=== PATIENT | male | born 1980 | race Two or more races ===

== ENCOUNTER 2019-01-04 15:45 | Inpatient (IN) | payer OTHER ==
[~2019-01-04] VITALS: Ht 177.8 cm; Wt 76.5 kg
[~2019-01-04 15:45] MED LIST: CODACE30 PO; HYDACE5 PO; IBUP800 PO; KETO10 PO; LEVSOD125 PO; METCAR500 PO; NAPR500 PO; NAPR550 PO; OXYACE5T PO; RXNAPNA550 PO; RXOXYACE PO; RXTRAM50 PO; TRAM50 PO; TRAZ50 PO
[2019-01-04 16:29] LABS: BASOPHILS ABSOLUTE AUTO 0.03 K/mm3 (0.00-0.23); BASOPHILS PERCENT AUTO 0 % (0-2); EOSINOPHILS PERCENT AUTO 0 % (0-6); Hematocrit 41.7 % (37.0-53.0); Hemoglobin 14.3 g/dL (13.5-17.5); IMMATURE GRAN ABSOLUTE AUTO 0.14 K/mm3 (0.00-0.10); IMMATURE GRAN PERCENT AUTO 1 % (0-1); LYMPHOCYTES ABSOLUTE AUTO 1.13 K/mm3 (0.84-5.20); LYMPHOCYTES PERCENT AUTO 6 % (21-46); MONOCYTES ABSOLUTE AUTO 1.68 K/mm3 (0.16-1.47); MONOCYTES PERCENT AUTO 9 % (4-13); Mean Corpuscular HGB 30.6 pg (26.0-34.0); Mean Corpuscular HGB Conc 34.3 g/dL (31.5-36.5); Mean Corpuscular Volume 89 fL (80-100); NEUTROPHILS PERCENT AUTO 85 % (41-73); Platelet Count 186 K/mm3 (150-400); RDW Coefficient Variation 13.4 % (11.7-14.2); RDW Standard Deviation 43.8 fL (35.1-46.3); Red Blood Cell Count 4.68 M/mm3 (4.30-5.90); White Blood Cell Count 19.58 K/mm3 (4.00-11.30)
[2019-01-04 16:44] LABS: International Normalized Ratio 1.14; Prothrombin Time Results 11.9 Sec (9.7-11.5)
[2019-01-04 16:52] LABS: Alanine Aminotransfer (ALT/SGP 34 U/L (12-78); Alk Phos 70 U/L (50-136); Anion Gap 7 mmol/L (6-16); Aspartate Aminotrans (AST/SGOT 34 U/L (12-37); Bilirubin, Total 0.7 mg/dL (0.1-1.0); Blood Urea Nitrogen 7 mg/dL (8-24); Bun/Creatinine Ratio 7.7 (12.0-20.0); CO2, Blood 23 mmol/L (21-32); Calcium, Blood 7.8 mg/dL (8.5-10.1); Chloride, Blood 101 mmol/L (98-108); Creatinine, Blood 0.91 mg/dL (0.60-1.20); Globulin, Blood 3.1 g/dL (2.2-4.0); Glomerular Filtration Rate >60 (60-); Glucose, Blood 107 mg/dL (70-99); Potassium, Blood 3.8 mmol/L (3.5-5.5); Sodium, Blood 131 mmol/L (136-145); Total Protein, Blood 6.1 g/dL (6.4-8.2)
[2019-01-04] MEDS ORDERED: SERT25 PO (17:31)
[2019-01-04] MEDS ORDERED: BACL10 (17:31)
[2019-01-04 18:00] LABS: Source, Urine Catheter
[2019-01-04 18:06] LABS: Bilirubin, Urine Neg (Neg); Blood, Urine Neg (Neg); Glucose Qualitative, Urine Neg (Neg); Ketones, Urine 2+ (Neg); Leukocyte Esterase, Urine Neg (Neg); Nitrite, Urine Neg (Neg); Protein, Urine 1+ (Neg); Urobilinogen, Urine NORM (Normal)
[2019-01-04 18:15] LABS: Appearance, Urine Clear (Clear); Color, Urine Yellow (P-Yellow)
[2019-01-05 05:18] LABS: BASOPHILS ABSOLUTE AUTO 0.04 K/mm3 (0.00-0.23); BASOPHILS PERCENT AUTO 0 % (0-2); EOSINOPHILS ABSOLUTE AUTO 0.04 K/mm3 (0.00-0.68); EOSINOPHILS PERCENT AUTO 0 % (0-6); Hematocrit 37.5 % (37.0-53.0); Hemoglobin 12.6 g/dL (13.5-17.5); IMMATURE GRAN ABSOLUTE AUTO 0.18 K/mm3 (0.00-0.10); IMMATURE GRAN PERCENT AUTO 1 % (0-1); LYMPHOCYTES ABSOLUTE AUTO 1.29 K/mm3 (0.84-5.20); LYMPHOCYTES PERCENT AUTO 6 % (21-46); MONOCYTES ABSOLUTE AUTO 1.83 K/mm3 (0.16-1.47); MONOCYTES PERCENT AUTO 9 % (4-13); Mean Corpuscular HGB 30.8 pg (26.0-34.0); Mean Corpuscular HGB Conc 33.6 g/dL (31.5-36.5); Mean Platelet Volume 11.8 fL (9.1-12.4); NEUTROPHILS PERCENT AUTO 84 % (41-73); Platelet Count 157 K/mm3 (150-400); RDW Coefficient Variation 13.4 % (11.7-14.2); RDW Standard Deviation 45.5 fL (35.1-46.3); Red Blood Cell Count 4.09 M/mm3 (4.30-5.90); White Blood Cell Count 20.78 K/mm3 (4.00-11.30)
[2019-01-05 05:21] LABS: Mean Corpuscular Volume 92 fL (80-100)
[2019-01-05 05:42] LABS: Alanine Aminotransfer (ALT/SGP 40 U/L (12-78); Albumin, Blood 2.4 g/dL (3.4-5.0); Alk Phos 61 U/L (50-136); Anion Gap 7 mmol/L (6-16); Aspartate Aminotrans (AST/SGOT 65 U/L (12-37); Bilirubin, Total 0.9 mg/dL (0.1-1.0); Blood Urea Nitrogen 10 mg/dL (8-24); Bun/Creatinine Ratio 12.8 (12.0-20.0); CO2, Blood 23 mmol/L (21-32); Calcium, Blood 7.8 mg/dL (8.5-10.1); Chloride, Blood 105 mmol/L (98-108); Creatinine, Blood 0.78 mg/dL (0.60-1.20); Globulin, Blood 2.4 g/dL (2.2-4.0); Glomerular Filtration Rate >60 (60-); Glucose, Blood 96 mg/dL (70-99); Potassium, Blood 3.8 mmol/L (3.5-5.5); Sodium, Blood 135 mmol/L (136-145); Total Protein, Blood 4.8 g/dL (6.4-8.2)
--- NOTE | 2019-01-05 06:08 | NUR ---
SHIFT SUMMARY PT ADMITTED WITH SEPSIS SECONDARY TO CELLULITIS LEFT ARM. ALERT AND ORIENTED. ORIENTED TO CALL LIGHT AND ROOM. PT C/O PAIN ON LEFT SIDE GIVEN IV TORADOL X 2 DURING SHIFT AND IV DILAUDID X1. PT ALSO HAD LARGE EMESIS AND MEDICATED WITH ZOFRAN. PT NPO AFTER MIDNIGHT FOR A PROCEDURE THIS AM. IVF'S INFUSING WITHOUT DIFFICULTY. USES URINAL AT BEDSIDE. WILL CONTINUE TO MONITOR.
--- NOTE | 2019-01-05 22:47 | NUR ---
2149 PATIENT STATED THAT HE WAS CURIOUS IF HE WAS SUPPOSED TO HAVE HIS ANTICLOTTING MEDICATION. SPOKE TO FINANCIAL DATA ANALYST AND LET HER KNOWN THAT PATIENT LOVENOX WAS HELD R/T POSSIBLE SX THIS DAY; UPON REVIEWING PHYSICIAN DOCUMENTATION. FINANCIAL DATA ANALYST STATED THAT IT WOULD BE OKAY AT THIS TIME TO GIVE LOVENOX.
--- NOTE | 2019-01-05 22:49 | NUR ---
PHYSICIAN CORRESPONDENCE [id number] RELAYED TO PHYSICIAN THAT WHEN RESPIRATORY THERAPY GAVE BREATHING TX TO PATIENT IT WAS NOTED THAT HIS TONGUE WAS SORE WITH REDNESS AND WHITE PATCHES. UPON OWN ASSESSMENT IT WAS NOTED THAT IT WAS INDEED RED, BUT NO REAL COMPLAINTS OF IT BEING SORE. PHYSICIAN STATED TO HAVE ATTENDING ADDRESS IN THE AM IT IS NOT AN EMERGENT ISSUE.
[2019-01-06 05:15] LABS: BASOPHILS ABSOLUTE AUTO 0.02 K/mm3 (0.00-0.23); BASOPHILS PERCENT AUTO 0 % (0-2); EOSINOPHILS ABSOLUTE AUTO 0.18 K/mm3 (0.00-0.68); EOSINOPHILS PERCENT AUTO 1 % (0-6); Hematocrit 38.7 % (37.0-53.0); Hemoglobin 12.9 g/dL (13.5-17.5); IMMATURE GRAN ABSOLUTE AUTO 0.09 K/mm3 (0.00-0.10); IMMATURE GRAN PERCENT AUTO 1 % (0-1); LYMPHOCYTES PERCENT AUTO 8 % (21-46); MONOCYTES ABSOLUTE AUTO 1.03 K/mm3 (0.16-1.47); MONOCYTES PERCENT AUTO 7 % (4-13); Mean Corpuscular HGB 30.2 pg (26.0-34.0); Mean Corpuscular HGB Conc 33.3 g/dL (31.5-36.5); Mean Corpuscular Volume 91 fL (80-100); Mean Platelet Volume 11.3 fL (9.1-12.4); NEUTROPHILS ABSOLUTE AUTO 11.48 K/mm3 (1.96-9.15); NEUTROPHILS PERCENT AUTO 83 % (41-73); Platelet Count 150 K/mm3 (150-400); RDW Coefficient Variation 13.7 % (11.7-14.2); RDW Standard Deviation 45.7 fL (35.1-46.3); Red Blood Cell Count 4.27 M/mm3 (4.30-5.90)
--- NOTE | 2019-01-06 07:36 | NUR ---
SHIFT SUMMARY A/O, ABLE TO MAKE NEEDS KNOWN. COOPERATIVE WITH CARE. CALLS AND ANSWERS QUESTIONS APPORPIRATELY. DID EXPRESS PAIN/DISCOMFORT TO L ARM; MEDICATED PER EMAR. UP INDPENDENTLY TO BATHROOM; STEADY GAIT. VSS/AFEBRILE. NO ACUTE CHANGES OVERNIGHT. BED IN LOWEST POSITION. CALL LIGHT AND BELONGINGS WITHIN REACH. STATES DESIRES SHOWER TODAY. WCTM. REPORT TO ONCOMING RN.
--- NOTE | 2019-01-06 17:48 | NUR ---
NO ACUTE CHANGES . PAIN MEDS REQUESTED AND GIVEN PER EMAR. CALL LIGHT WITHIN REACH.
--- NOTE | 2019-01-07 05:17 | NUR ---
HINGING MACHINE OPERATOR SUMMARY NO ACUTE CHANGES THIS SHIFT. PT AAOX4 AND INDEPENDENT IN ROOM. PT TAKES WALKS AROUND THE HOSPITAL OFTEN. VERY PLEASANT. TREATED FOR PAIN OF HIS L ARM X1 PER EMAR. PT L ARM SLIGHTLY RED AND SWOLLEN BUT PT DOES REPORT IT IS MUCH IMPROVED COMPARED TO WHEN HE WAS ADMITTED. THIS RN ASSISTED PT TO REWRAP HIS ARM IN LULU BANDAGES THEY HAD BECOME LOOSE. VSS, WILL CONTINUE TO MONITOR.
--- NOTE | 2019-01-07 12:47 | NUR ---
0034 THIS NURSE WENT INTO TO CHECK ON PATIENT THE IV WAS BEEPING. NURSE FOUND PATIENT HAD RIPPED OUT HIS IV, UNWRAPPED THE BANDAGE TO THE AFFECTED ARM WHICH HE HAD JUST AKED TO BE WRAPPED, AND WAS SITTING ON THE EDGE OF HIS BED VERY AGITATED, SHAKING AND APPEARING ANGRY. WHEN THIS NURSE ASKED WHAT WAS WRONG HE DIDNT HAVE AN ANSWER. WHEN THIS NURSE ASKED WHY HE RIPPED OUT HIS IV HE SAID IT WAS HURTING YET WHEN ASKED WHY HE DIDNT COMPLAIN WHEN NURSE HAD JUST BEEN IN HE DIDNT HAVE AN ANSWER. HIS AGITATION CONTINUED TO INCREASE AND HE SAID HE NEEDED TO GO OUT. THIS NURSE ASKED IF HE WANTED TO BE DISCHARGED AND DUE TO HIS AGITATION INCREASING DECIDED TO GIVE HIM HIS SPACE AND LEFT THE ROOM, TELLING THE PATIENT THAT SHE WOULD ALLOW HIM TO HAVE SOME TIME ALONE BUT WOULD BE RIGHT OUTSIDE THE DOOR. NURSE CALLED DOCTOR AND WHILE INFORMING HIM OF THE SITUATION THE PATIENT CAME OUT AND SAID HE WAS GOING OUTSIDE TO SMOKE. PATIENT STILL HAS BELONGINGS IN THE ROOM.
[2019-01-07] MEDS ORDERED: ASPI325 PO (13:35)
[2019-01-07] MEDS ORDERED: TRAZ50 PO (13:36)
[2019-01-07] MEDS ORDERED: Vsl#3 Capsule1 EACH PO (13:39)
[2019-01-07] MEDS ORDERED: Augmentin 875-1 EACH PO (13:39)
--- NOTE | 2019-01-07 14:09 | NUR ---
PT DISCHARGED VERBALIZED UNDERSTANDING OF DISCHARGE INSTRUCTIONS. PT REQUESTED PAIN MEDICATION FOR DISCHARGE- CALL TO DR RYAN, REQUESTED THIS RN TO TELL PT TO TAKE IBUPROFEN FOR PAIN. PT DISCHARGED WITH PT BELONGINGS WITH FAMILY
== END 2019-01-07 14:08 | disposition home or self-care (01) | DRG 872 ==
LOC: ER 15:45 → MEDS 18:02
PROVIDERS: Emergency Medicine; ADMIT Internal Medicine
DX: A41.9 Sepsis, unspecified organism (principal); L03.114 Cellulitis of left upper limb; E87.1 Hypo-osmolality and hyponatremia; R65.20 Severe sepsis without septic shock; F32.9 Major depressive disorder, single episode, unspecified; F41.9 Anxiety disorder, unspecified; X58.XXXA Exposure to other specified factors, initial encounter; Z85.850 Personal history of malignant neoplasm of thyroid; Z79.899 Other long term (current) drug therapy
CPT/HCPCS: 36415; 73201; 80053; 82550; 83036; 83605; 85025; 85610; 85651; 85730; 86140; 93005; 93010; 94640; 94760; 96361; 96365-59; 96375-59; 99285-25; A9270; J0690; J1170; J1650; J1885; J2405; J2543; J7030; J7050; J7120; Q9967

== ENCOUNTER 2022-03-16 04:45 | Emergency (ER) | payer OTHER ==
[~2022-03-16] VITALS: Ht 182.9 cm; Wt 76.7 kg
[~2022-03-16 04:45] MED LIST changes: +ASPI325 PO; +Augmentin 875-1 EACH PO; +BACL10; +SERT25 PO; +Vsl#3 Capsule1 EACH PO
[2022-03-16 05:21] LABS: Source, Urine Voided
[2022-03-16 05:21] LABS: BASOPHILS ABSOLUTE AUTO 0.03 K/mm3 (0.00-0.23); BASOPHILS PERCENT AUTO 0 % (0-2); EOSINOPHILS ABSOLUTE AUTO 0.07 K/mm3 (0.00-0.68); EOSINOPHILS PERCENT AUTO 1 % (0-6); Hematocrit 47.7 % (37.0-53.0); IMMATURE GRAN ABSOLUTE AUTO 0.01 K/mm3 (0.00-0.10); IMMATURE GRAN PERCENT AUTO 0 % (0-1); LYMPHOCYTES ABSOLUTE AUTO 1.38 K/mm3 (0.84-5.20); LYMPHOCYTES PERCENT AUTO 19 % (21-46); MONOCYTES ABSOLUTE AUTO 0.64 K/mm3 (0.16-1.47); MONOCYTES PERCENT AUTO 9 % (4-13); Mean Corpuscular HGB 30.8 pg (26.0-34.0); Mean Corpuscular HGB Conc 33.5 g/dL (31.5-36.5); Mean Corpuscular Volume 92 fL (80-100); Mean Platelet Volume 11.6 fL (9.1-12.4); NEUTROPHILS ABSOLUTE AUTO 5.34 K/mm3 (1.96-9.15); NEUTROPHILS PERCENT AUTO 72 % (41-73); Platelet Count 213 K/mm3 (150-400); RDW Coefficient Variation 13.1 % (11.7-14.2); RDW Standard Deviation 44.3 fL (35.1-46.3); Red Blood Cell Count 5.19 M/mm3 (4.30-5.90); White Blood Cell Count 7.47 K/mm3 (4.00-11.30)
[2022-03-16 05:24] LABS: Bilirubin, Urine Neg (Neg); Blood, Urine Neg (Neg); Glucose Qualitative, Urine Neg (Neg); Ketones, Urine Neg (Neg); Leukocyte Esterase, Urine Neg (Neg); Nitrite, Urine Neg (Neg); Protein, Urine Neg (Neg); Specific Gravity, Urine 1.025 (1.003-1.022); Urobilinogen, Urine NORM (Normal)
[2022-03-16 05:40] LABS: U Amphetamine Screen Not Detected; U Barbituate Screen Not Detected; U Benzodiazapine Screen Not Detected; U Buprenorphine Screen Not Detected; U Cannabinoids Screen Not Detected; U Cocaine Screen Not Detected; U Methadone Screen Not Detected; U Methamphetamine Screen Not Detected; U Opiates Screen Not Detected; U Oxycodone Screen Not Detected; U Phencyclidine Screen Not Detected; U Propoxyphene Screen Not Detected
[2022-03-16 05:43] LABS: Ethanol (Alcohol), Blood, Med <3 mg/dL; Salicylate 3.9 mg/dL (2.8-20.0)
[2022-03-16 05:50] LABS: Alanine Aminotransfer (ALT/SGP 39 U/L (12-78); Albumin, Blood 3.9 g/dL (3.4-5.0); Albumin/Globulin Ratio 1.4 (0.8-1.8); Alk Phos 56 U/L (50-136); Anion Gap 6 mmol/L (6-16); Aspartate Aminotrans (AST/SGOT 28 U/L (12-37); Bilirubin, Total 0.9 mg/dL (0.1-1.0); Blood Urea Nitrogen 12 mg/dL (8-24); Bun/Creatinine Ratio 12.5 (12.0-20.0); CO2, Blood 24 mmol/L (21-32); Chloride, Blood 111 mmol/L (98-108); Creatinine, Blood 0.96 mg/dL (0.60-1.20); Globulin, Blood 2.8 g/dL (2.2-4.0); Glomerular Filtration Rate 101 (60-); Glucose, Blood 99 mg/dL (70-99); Potassium, Blood 3.9 mmol/L (3.5-5.5); Sodium, Blood 141 mmol/L (136-145); Total Protein, Blood 6.7 g/dL (6.4-8.2)
[2022-03-16 05:51] LABS: Acetaminophen, Random <2.0 ug/mL (10.0-30.0); Influenza A, PCR NEGATIVE (NEGATIVE); Influenza B, PCR NEGATIVE (NEGATIVE); Resp Syncytial Virus, PCR NEGATIVE (NEGATIVE); SARS-Cov-2 (COVID-19) PCR, MMC NEGATIVE (NEGATIVE)
[2022-03-16 06:03] LABS: Appearance, Urine Clear (Clear); Color, Urine Yellow (P-Yellow)
== END 2022-03-16 09:35 | disposition home or self-care (01) ==
LOC: ER 04:45
PROVIDERS: Emergency Medicine; Student in an Organized Health Care Education/Training Program
DX: F41.9 Anxiety disorder, unspecified (principal); F32.A Depression, unspecified; Z87.891 Personal history of nicotine dependence; Z20.822 Contact with and (suspected) exposure to COVID-19
CPT/HCPCS: 0241U; 80053; 81003; 85025; 99284; G0480